=== PATIENT | male | born 1935 | race Caucasian/White ===

== ENCOUNTER 2016-12-05 11:09 | Day surgery (SDC) | payer MEDICARE, OTHER ==
[~2016-12-05] VITALS: Ht 180.3 cm; Wt 86.2 kg
[~2016-12-05 11:09] MED LIST: ALBU8.5H2 INHALATION; ASPI-973 PO; CYAN250010 PO; GUAI-382 PO; IPRA3AMP IH; LISI-571 PO; LOVA20TA PO; PRE20 PO; Sodium Chloride LOK Flush 10 mL Syringe IV PRN; fentaNYL-PF 50 mCg/mL 2 mL Inj IVPUSH PRN
[2016-12-05 11:42] VITALS: BP 119/73; PULSE 100; RESP 16; O2SAT 94
[2016-12-05] MEDS ORDERED: BUDE0.255 INHALATION (11:44)
[2016-12-05] MEDS: 0.9% Sodium Chloride 1,000 ML IV SCH ×3 (11:50→12:27)
[2016-12-05 12:37] VITALS: BP 113/76; PULSE 94; RESP 16; O2SAT 94
[2016-12-05 12:50] VITALS: BP 109/67; PULSE 94; RESP 16; O2SAT 95
--- NOTE | 2016-12-05 13:05 | ENDO ---
[address] [address] ENDOSCOPY PROCEDURE PATIENT: LIAN GUERRERO : 1935 MR#: [id number] ADMIT: 12/05/2016 JOB ID: [id number] DATE OF PROCEDURE: 12/05/2016 PRIMARY PROVIDER: Manuel Guerrero MD PROCEDURE: Colonoscopy. INDICATIONS: An 81-year-old male with a history of colon cancer, status post right hemicolectomy. He also has a personal history of colon polyps, returning for surveillance. EQUIPMENT: [facility]180AL SEDATION: 2 mg Versed, 50 mcg fentanyl. COMPLICATIONS: None identified. BOWEL PREPARATION: Fair, adequate exam. PROCEDURE INFORMATION: After the risks and benefits were explained, written and verbal informed consent was obtained. The patient was brought into the endoscopy suite and placed into the left lateral decubitus position. Sedation was achieved as above. A digital rectal examination accomplished. No significant pathology appreciated. The scope was then introduced into the rectum and advanced to the right hemicolectomy anastomosis. The scope was then slowly withdrawn to carefully examine the mucosa for any defects or lesions. Retroflexed views were accomplished in the rectum. The colon was decompressed. The scope removed from the patient who tolerated the procedure well. FINDINGS: No significant polyps, mass lesions, or inflammatory features identified throughout. The right hemicolectomy anastomosis appeared normal. In retroflexed position, mild internal hemorrhoids were noted. ENDOSCOPIC DIAGNOSES: 1. Mild internal hemorrhoids. 2. Normal right hemicolectomy anastomosis. RECOMMENDATIONS: Repeat colonoscopy in three years. [facility]
== END 2016-12-05 23:59 | disposition home or self-care (01) ==
LOC: END 11:09
PROVIDERS: ATTEND Internal Medicine Gastroenterology
DX: Z12.11 Encounter for screening for malignant neoplasm of colon (principal); K64.8 Other hemorrhoids; K63.89 Other specified diseases of intestine; Z85.038 Personal history of other malignant neoplasm of large intestine; Z86.010 Personal history of colon polyps; Z90.49 Acquired absence of other specified parts of digestive tract; J44.9 Chronic obstructive pulmonary disease, unspecified; I10 Essential (primary) hypertension; R73.03 Prediabetes; E78.2 Mixed hyperlipidemia; Z87.891 Personal history of nicotine dependence; Z79.51 Long term (current) use of inhaled steroids; Z79.82 Long term (current) use of aspirin
CPT/HCPCS: G0105; G0500; J7030